=== PATIENT | male | born 1955 | race Two or more races ===

== ENCOUNTER 2017-12-11 06:42 | Day surgery (SDC) | payer OTHER ==
[~2017-12-11] VITALS: Ht 160 cm; Wt 80.7 kg
[2017-12-11 07:28] VITALS: BP 140/80
[2017-12-11 11:53] VITALS: BP 135/80
== END 2017-12-11 10:30 | disposition home or self-care (01) ==
LOC: DS 06:42 → EDBD 08:00 → GI 08:00 → OR 08:00 → DS 10:30
PROVIDERS: Internal Medicine Gastroenterology
PROC: 0DBH8ZZ Excision of Cecum, Via Natural or Artificial Opening Endoscopic (ICD-10-PCS; principal; 2017-12-11 08:00)
DX: Z12.11 Encounter for screening for malignant neoplasm of colon (principal); K57.30 Diverticulosis of large intestine without perforation or abscess without bleeding; K64.8 Other hemorrhoids; D12.0 Benign neoplasm of cecum; E11.9 Type 2 diabetes mellitus without complications; I10 Essential (primary) hypertension
CPT/HCPCS: 45378; 82962; J1200; J1610; J2250; J2310; J3010; J3490